=== PATIENT | female | born 1990 | race African-American/Black ===

== ENCOUNTER 2017-01-19 10:17 | Emergency (ER) | payer BC ==
[2017-01-19 10:20] VITALS: BP 142/95
[2017-01-19] MEDS ORDERED: NS 1000 ML 1,000 ML IV ONE (10:30)
--- NOTE | 2017-01-19 10:30 | ED.ABDFE ---
HPI - Time seen Time seen: 10:25 - PCP Primary Care Physician: NFD - Complaint Chief Complaint Doctors Comments: Patient admits to left flank garcia sinc 0600 this am that has been relenting. She admits to prevous history of kideny stones. LMP middle of month. She denies diarrhea but admits to nauses. Denies fever. Chief Complaint:: PT. C/O LEFT FLANK PAIN THAT BEGAN AT 0600. PT. ALSO C/O N/V. - Source History Provided: Patient - Mode of arrival Mode of Arrival: Ambulatory - Timing Onset of Chief Complaint: 01/19/17 PMH - PMH Past Medical History: Yes Past Medical History: Kidney Stones Past Surgical History: Yes Surgical History: Appendectomy, - Family History History of Family Medical Conditions: Yes Family Medical History: Hypertension - Social History Does patient currently use any type of tobacco product: Yes Have you used tobacco products in the last 12 months: Yes Type of Tobacco Use: Cigarettes Does any household member use tobacco: No Alcohol Use: None Do you use any recreational Drugs:: No Lives With: Family Lives Where: Home - infectious screening In the last 2 months have you had wt loss of >10#?: NO Have you had fever, night sweats or hemotysis?: No Have you traveled outside the country in the last 6 months?: No Isolation: Standard ROS - Review of Systems Eyes: No Symptoms Reported ENTM: No Symptoms Reported Respiratoy: No Symptoms Reported Cardiovascular: No Symptoms Reported Gastrointestinal/Abdominal: See HPI, Abdominal Pain, Nausea, Vomiting Genitourinary: No Symptoms Reported Neurological: No Symptoms Reported Musculoskeletal: No Symptoms Reported Integumentary: No Symptoms Reported Hematologic/Lymphatic: No Symptoms Reported Endocrine: No Symptoms Reported Psychiatric: No Symptoms Reported All Other Systems: Reviewed and Negative PE - Vital Signs Vitals: Temperature 97.7 F Pulse Rate 74 Respiratory Rate 20 Blood Pressure [Right Arm] 130/82 Blood Pressure 142/95 O2 Sat by Pulse Oximetry 100 - General Limitations: No Limitations General Appearance: Alert, Anxious, In Distress - Head Head Exam: Normal Inspection - ENT ENT Exam: Normal Exam, Normal External Ear Exam, Mucous Membranes Dry - Neck Neck Exam: Normal Inspection, Full ROM, Trachea Midline - Chest Chest Inspection: Normal Inspection, Symmetric Chest Wall Rise - Respiratory Respiratory Exam: Normal Lung Sounds Bilat, Accessory Muscle Use Respiratory Exam: Bilateral Clear to Auscultation - Cardiovascular Cardiovascular Exam: Regular Rate, Normal Rhythm - Abdominal Exam Abdominal Exam: Normal Inspection Abdominal Tenderness: RUQ - Rectal Rectal Exam: Deferred - Back Back Exam: Normal Inspection, Full ROM - Extremeties Extremities Exam: Normal Inspection, Full ROM. negative: Normal Capillary Refill - External Exam: Female: Deferred : Speculum Exam (Female): Deferred : Bimanual Exam (female): Normal Bimanual exam - Neurologic Neurological Exam: Alert, Oriented X3, CN II-XII Intact - Psychiatric Psychiatric Exam: Normal Affect, Normal Mood - Skin Skin Exam: Warm, Dry Course - Reevaluation 1st: Improved ROR - Labs Reviewed Laboratory Results Reviewed?: Yes (Urine: 3+leukocytes, 5-10 wbc, 1+hematuria) Result Diagrams: 01/19/17 10:42 01/19/17 10:42 Laboratory: WBC 18.7 X10^3/uL (3.6-10.0) H 01/19/17 10:42 RBC 4.51 X10^6/uL (3.5-5.4) 01/19/17 10:42 Hgb 13.0 g/dL (12.0-16.0) 01/19/17 10:42 Hct 40.4 % (36.0-47.0) 01/19/17 10:42 MCV 89.5 fL (80.0-100.0) 01/19/17 10:42 MCH 28.8 pg (27.0-34.0) 01/19/17 10:42 MCHC 32.2 g/dL (33.0-35.0) L 01/19/17 10:42 RDW 13.5 % (11.6-16.5) 01/19/17 10:42 Plt Count 209 X10^3/uL (150.0-450.0) 01/19/17 10:42 MPV 8.9 fL (7.4-11.0) 01/19/17 10:42 Neut % 86.8 % (42.0-75.0) H 01/19/17 10:42 Lymph % 8.6 % (21.0-51.0) L 01/19/17 10:42 Sampson % 3.4 % (0.0-13.0) 01/19/17 10:42 Eos % 0.4 % (0.9-2.9) L 01/19/17 10:42 Baso % 0.8 % (0.2-1.0) 01/19/17 10:42 Neut # 16.2 x10^3/uL (2.2-4.8) H 01/19/17 10:42 Lymph # 1.6 X10^3/uL (1.3-2.9) 01/19/17 10:42 Sampson # 0.6 x10^3/uL (0.3-0.8) 01/19/17 10:42 Eos # 0.1 x10^3/uL (0.0-0.2) 01/19/17 10:42 Baso # 0.1 X10^3/uL (0.0-0.1) 01/19/17 10:42 Absolute Nucleated RBC 0.0 /100WBC 01/19/17 10:42 Sodium 143 mmol/L (136-145) 01/19/17 10:42 Corrected Sodium TNP 01/19/17 10:42 Potassium 3.5 mmol/L (3.5-5.1) 01/19/17 10:42 Chloride 108 mmol/L (98-107) H 01/19/17 10:42 Carbon Dioxide 23.8 mmol/L (21-32) 01/19/17 10:42 BUN 16 mg/dL (7-18) 01/19/17 10:42 Creatinine 1.11 mg/dL (0.55-1.02) H 01/19/17 10:42 Est GFR (MDRD) Af Amer > 60 (>60) 01/19/17 10:42 Est GFR (MDRD) Non-Af > 60 (>60) 01/19/17 10:42 Glucose 110 mg/dL (65-99) H 01/19/17 10:42 Calcium 8.5 mg/dL (8.5-10.1) 01/19/17 10:42 Corrected Calcium TNP 01/19/17 10:42 Total Bilirubin 0.40 mg/dL (0.2-1.0) 01/19/17 10:42 AST 26 Units/L (15-37) 01/19/17 10:42 ALT 30 Units/L (12-78) 01/19/17 10:42 Alkaline Phosphatase 62 Units/L (46-116) 01/19/17 10:42 C-Reactive Protein 1.40 mg/L (0-3.0) 01/19/17 10:42 Total Protein 7.0 g/dL (6.4-8.2) 01/19/17 10:42 Albumin 3.6 g/dL (3.4-5.0) 01/19/17 10:42 Globulin 3.4 g/dL (2.5-4.5) 01/19/17 10:42 Albumin/Globulin Ratio 1.1 Ratio (1.1-2.1) 01/19/17 10:42 HCG, Qual Negative <10 mIU/mL 01/19/17 10:42 Specimen Type Clean catch urine 01/19/17 10:29 Urine Color Yellow (YELLOW) 01/19/17 10:29 Urine Appearance Slightly hazy (CLEAR) 01/19/17 10:29 Urine pH 6.0 (5.0 - 8.0) 01/19/17 10:29 Ur Specific [place] 1.025 (1.000-1.030) 01/19/17 10:29 Urine Protein 2+ (NEGATIVE) 01/19/17 10:29 Urine Glucose (UA) Negative (NEGATIVE) 01/19/17 10:29 Urine Ketones 1+ (NEGATIVE) 01/19/17 10:29 Urine Occult Blood 1+ (NEGATIVE) 01/19/17 10:29 Urine Nitrite Negative (NEGATIVE) 01/19/17 10:29 Urine Bilirubin Negative (NEGATIVE) 01/19/17 10:29 Urine Urobilinogen Normal (NORMAL) 01/19/17 10:29 Ur Leukocyte Esterase 3+ (NEGATIVE) 01/19/17 10:29 Urine RBC 0-5 /HPF (NEGATIVE) 01/19/17 10:29 Urine WBC 5-10 /HPF (NEGATIVE) 01/19/17 10:29 Ur Squamous Epith Cells Rare /HPF (NEGATIVE) 01/19/17 10:29 Urine Bacteria Trace /HPF (NEGATIVE) 01/19/17 10:29 Urine Trichomonas Few /HPF (NEGATIVE) 01/19/17 10:29 Urine Sperm Few /HPF (NEGATIVE) 01/19/17 10:29 Ur Culture Indicated? No/not indicated 01/19/17 10:29 - XRAY XRAY Interpreted by: Radiologist (CT Abd/pel: 4mm stone at the left UVJ causing a moderate left Hydroureter and mild/moderate left hydronephrosis. Remaining exam is unremarkable.) - Diagnosis Discharge Problem: Hydroureteronephrosis UTI (urinary tract infection) Qualifiers: Urinary tract infection type: acute cystitis Hematuria presence: with hematuria Qualified Code(s): N30.01 - Acute cystitis with hematuria - Discharge Plan Condition: Stable - Follow ups/Referrals Follow ups/Referrals: NFD,None [Primary Care Provider] - 3 days - Instructions
[2017-01-19] MEDS ORDERED: MORPHINE SULFATE INJ 4 MG IVP ONE (10:31)
[2017-01-19] MEDS ORDERED: ZOFRAN INJ 4 MG VIAL IVP ONE (10:31)
[2017-01-19] MEDS ORDERED: NS 1000 ML 1,000 ML ONE (10:31)
[2017-01-19] MEDS ORDERED: ZOFRAN INJ 4 MG VIAL ONE (10:32)
[2017-01-19] MEDS ORDERED: MORPHINE SULFATE INJ 4 MG ONE (10:32)
[2017-01-19 10:36] LABS: BILIRUBIN,URINE NEGATIVE (NEGATIVE); BLOOD/HEMOGLOBIN,URINE 1+ (NEGATIVE); GLUCOSE, URINE NEGATIVE (NEGATIVE); KETONES,URINE 1+ (NEGATIVE); LEUKOCYTE ESTERASE ,URINE 3+ (NEGATIVE); NITRITES,URINE NEGATIVE (NEGATIVE); PROTEIN,URINE 2+ (NEGATIVE); UROBILINOGEN,URINE NORMAL (NORMAL)
[2017-01-19 10:53] LABS: BASOPHILS # (AUTO) 0.1 X10^3/uL (0.0-0.1); BASOPHILS % (AUTO) 0.8 % (0.2-1.0); EOSINOPHILS # (AUTO) 0.1 x10^3/uL (0.0-0.2); EOSINOPHILS % (AUTO) 0.4 % (0.9-2.9); HEMATOCRIT 40.4 % (36.0-47.0); LYMPHOCYTES # (AUTO) 1.6 X10^3/uL (1.3-2.9); LYMPHOCYTES % (AUTO) 8.6 % (21.0-51.0); MEAN CORPUSCULAR HEMOGLOBIN 28.8 pg (27.0-34.0); MEAN CORPUSCULAR HGB CONC 32.2 g/dL (33.0-35.0); MEAN CORPUSCULAR VOLUME 89.5 fL (80.0-100.0); MEAN PLATELET VOLUME 8.9 fL (7.4-11.0); MONOCYTES # (AUTO) 0.6 x10^3/uL (0.3-0.8); MONOCYTES % (AUTO) 3.4 % (0.0-13.0); NEUTROPHILS # (AUTO) 16.2 x10^3/uL (2.2-4.8); NEUTROPHILS % (AUTO) 86.8 % (42.0-75.0); PLATELET COUNT 209 X10^3/uL (150.0-450.0); RED BLOOD COUNT 4.51 X10^6/uL (3.5-5.4); RED CELL DISTRIBUTION WIDTH 13.5 % (11.6-16.5); WHITE BLOOD COUNT 18.7 X10^3/uL (3.6-10.0)
[2017-01-19 10:57] LABS: APPEARANCE,URINE SLIGHTLY HAZY (CLEAR); BACTERIA,URINE TRACE /HPF (NEGATIVE); COLOR,URINE YELLOW (YELLOW); RBC,URINE 0-5 /HPF (NEGATIVE); SQUAMOUS EPITHELIAL CELL,UR RARE /HPF (NEGATIVE); TRICHOMONAS,URINE FEW /HPF (NEGATIVE)
[2017-01-19 10:58] LABS: SPERM,URINE FEW /HPF (NEGATIVE)
[2017-01-19 11:01] LABS: ALANINE AMINOTRANSFERASE 30 Units/L (12-78); ALBUMIN 3.6 g/dL (3.4-5.0); ALKALINE PHOSPHATASE 62 Units/L (46-116); ASPARTATE AMINO TRANSFERASE 26 Units/L (15-37); BLOOD UREA NITROGEN 16 mg/dL (7-18); CALCIUM 8.5 mg/dL (8.5-10.1); CARBON DIOXIDE 23.8 mmol/L (21-32); CHLORIDE 108 mmol/L (98-107); CREATININE 1.11 mg/dL (0.55-1.02); GLUCOSE 110 mg/dL (65-99); SODIUM 143 mmol/L (136-145); eGFR BLACK RACES > 60 (>60); eGFR NON BLACK RACES > 60 (>60)
[2017-01-19 11:09] LABS: SERUM PREGNANCY TEST, QUAL NEGATIVE <10 mIU/mL
--- NOTE | 2017-01-19 12:41 | CT ---
HISTORY: Left flank pain. History of stone. Study: CT abdomen and pelvis without contrast Comparison: KUB dated December 26, 2013. Technique: Multiple axial images of the abdomen and pelvis were obtained from the lung bases to the pubic symph ysis without the administration of IV contrast. Dose reduction techniques including Automated Expos ure Control (AEC) and adjustment of mA and kV were utilized. Findings: The visualized portions of the lung bases are unremarkable. 4 mm stone at the left UVJ causing moder ate left hydroureter and mild/moderate left hydronephrosis. No other renal or ureteral stones are ap preciated. The liver, spleen, pancreas, right kidney, and adrenal glands are unremarkable in their C T appearance. The gallbladder is unremarkable in its CT appearance. No significant mesenteric lymph adenopathy or stranding can be observed. No free fluid or free air is seen within the abdomen. The large and small bowel appear normal. The appendix is normal. The uterus and ovaries appear normal. The remaining bladder appears normal. The osseous structures appear normal for age. IMPRESSION: 1. 4 mm stone at the left UVJ causing a moderate left hydroureter and mild/moderate left hydronephr osis. 2. Remaining exam is unremarkable. Reported By:
[2017-01-19] MEDS ORDERED: TORADOL 30 MG VIAL IVP ONE (12:44)
[2017-01-19] MEDS ORDERED: TORADOL 30 MG VIAL ONE (12:44)
== END 2017-01-19 13:05 | disposition home or self-care (01) ==
LOC: ER 10:17
DX: N13.30 Unspecified hydronephrosis (principal); N30.01 Acute cystitis with hematuria; R10.13 Epigastric pain
CPT/HCPCS: 36415; 74176; 80053; 81001; 84703; 85025; 86140; 96365; 96374; 96375; 99283; A4222; J1885; J2270; J2405